=== PATIENT | female | born 2000 | race American Indian/Alaskan Native ===

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

== ENCOUNTER 2021-09-21 18:46 | Emergency (ER) | payer SELFPAY ==
[2021-09-21 19:17] VITALS: BP 134/85; PULSE 73
[2021-09-21] MEDS ORDERED: Iopamidol 612 MG/ML 100 ML Bottle IVPUSH ONE (20:10)
[2021-09-21] MEDS ORDERED: Ondansetron 4 MG/2 ML SDV IVPUSH ONE (20:22)
[2021-09-21] MEDS ORDERED: fentaNYL 100 MCG/2 ML SDV IVPUSH ONE (20:22)
[2021-09-24 12:49] LABS: C.TRACHOMATIS BY TMA Negative (Negative); N.GONORRHOEAE BY TMA Negative (Negative)
== END 2021-09-21 21:55 | disposition home or self-care (01) ==
LOC: DL.ED 18:46
DX: R10.31 Right lower quadrant pain (principal); E66.9 Obesity, unspecified; Z68.41 Body mass index [BMI] 40.0-44.9, adult; Z79.899 Other long term (current) drug therapy
CPT/HCPCS: 36415; 74177; 80053; 81001; 81025; 82150; 83605; 83690; 85025; 87491; 87591; 96374; 96375; 99284; J2405; J3010; Q9967

== ENCOUNTER 2022-03-21 11:43 | Emergency (ER) | payer OTHER ==
[2022-03-21 13:14] VITALS: BP 141/90; PULSE 93
[2022-03-21 13:49] LABS: CORONAVIRUS COVID-19 NAA NEGATIVE (NEGATIVE); RESPIRATORY SYNCYTIAL VIR NAA NEGATIVE (NEGATIVE)
[2022-03-21 15:12] LABS: ANION GAP 16.3 mEq/L (7-13)
[2022-03-21] MEDS ORDERED: Iopamidol 612 MG/ML 100 ML Bottle IVPUSH ONE (15:18)
[2022-03-21] MEDS ORDERED: Ondansetron 4 MG/2 ML SDV IVPUSH ONE (15:34)
[2022-03-21] MEDS ORDERED: Ketorolac 30 MG/ML SDV IVPUSH ONE (16:21)
== END 2022-03-21 16:32 | disposition home or self-care (01) ==
LOC: DL.ED 11:43
DX: K52.9 Noninfective gastroenteritis and colitis, unspecified (principal); F17.210 Nicotine dependence, cigarettes, uncomplicated; E66.9 Obesity, unspecified; Z68.41 Body mass index [BMI] 40.0-44.9, adult; Z20.822 Contact with and (suspected) exposure to COVID-19
CPT/HCPCS: 0241U; 36415; 74177; 80053; 81003; 81025; 82150; 83690; 84145; 85025; 96374; 96375; 99284; J1885; J2405; Q9967

== ENCOUNTER 2024-02-16 00:52 | Inpatient (IN) | payer OTHER ==
[~2024-02-16 00:52] MED LIST: Acetaminophen 325 MG Tab PO PRN; Carboprost Tromethamine 250 MCG/1 ML Amp IM PRN; Misoprostol 25 MCG (1/4 of 100 MCG) Tab PO PRN; Naloxone 2 MG/2 ML Syringe IVPUSH PRN; Ondansetron 4 MG/2 ML SDV IVPUSH PRN; Sodium Chloride 0.9% 10 ML Syringe FLUSH PRN; Tranexamic Acid 1,000 MG in Sodium Chloride 0.9% 100 ML IV PRN; fentaNYL 100 MCG/2 ML SDV IVPUSH PRN
[2024-02-16 01:33] LABS: HEMATOCRIT 39.1 % (37.0-47.0); HEMOGLOBIN 13.1 g/dL (12.0-16.0); MEAN CORPUSCULAR HEMOGLOBIN 30.5 pg (27.0-34.0); MEAN CORPUSCULAR HGB CONC 33.5 g/dL (33.0-35.0); MEAN CORPUSCULAR VOLUME 90.9 fL (80-100); RED BLOOD CELL COUNT 4.3 10^6/uL (4.2-5.4); WHITE BLOOD CELL COUNT,WBC 11.5 10^3/uL (5.0-10.0)
[2024-02-16] MEDS: Misoprostol 50 MCG (1/2 of 100 MCG) Tab PO SCH (01:52)
[2024-02-16] MEDS: Lactated Ringers 1,000 ML IV ONE (06:14)
[2024-02-16] MEDS ORDERED: fentaNYL 100 MCG/2 ML SDV ONE (06:32)
[2024-02-16] MEDS ORDERED: Bupivacaine 0.25% 10 ML SDV ONE (06:32)
[2024-02-16] MEDS ORDERED: Ropivacaine 100 ML EPIDUR ONE (06:35)
[2024-02-16] MEDS ORDERED: Bupivacaine 0.25% 10 ML SDV NERVRT ONE (06:35)
[2024-02-16] MEDS ORDERED: Ondansetron 4 MG/2 ML SDV IV ONE (06:35)
[2024-02-16] MEDS ORDERED: fentaNYL 100 MCG/2 ML SDV EPIDUR ONE (06:35)
[2024-02-16] MEDS ORDERED: Ketorolac 30 MG/ML SDV IVPUSH ONE (06:35)
[2024-02-16] MEDS ORDERED: Phenylephrine HCl In 0.9% NaCl 1 MG/10 ML Syringe IVPUSH PRN (06:56)
[2024-02-16] MEDS ORDERED: ePHEDrine 50 MG/ML SDV IVPUSH PRN (06:56)
[2024-02-16] MEDS ORDERED: Ropivacaine 200 MG in Premix Bag 1 BAG EPIDUR SCH (07:00)
[2024-02-16] MEDS: Lactated Ringers 1,000 ML IV SCH (07:49)
[2024-02-16] MEDS: Oxytocin/Normal Saline 30 UNIT/500 ML BAG IV SCH (07:55)
[2024-02-16] MEDS: Misoprostol 100 MCG Tab RECTAL PRN (16:38)
[2024-02-16] MEDS: Methylergonovine 0.2 MG/1 ML Amp IM PRN (16:39)
[2024-02-16] MEDS ORDERED: Sodium Chloride 0.9% 10 ML Syringe FLUSH PRN ×2 (17:40→20:17)
[2024-02-16] MEDS ORDERED: Simethicone 80 MG Tab.Chew PO PRN ×2 (17:40→20:17)
[2024-02-16] MEDS ORDERED: Acetaminophen 325 MG Tab PO PRN ×2 (17:40→20:17)
[2024-02-16] MEDS ORDERED: Misoprostol 100 MCG Tab RECTAL PRN ×2 (17:40→20:17)
[2024-02-16] MEDS ORDERED: Benzocaine/Menthol 20%-0.5% Spray 78 GM Cannister TOP PRN (17:40)
[2024-02-16] MEDS ORDERED: Carboprost Tromethamine 250 MCG/1 ML Amp IM PRN ×2 (17:40→20:17)
[2024-02-16] MEDS ORDERED: Witch Hazel Medicated Pads 100/Jar TOP PRN (17:40)
[2024-02-16] MEDS ORDERED: Oxytocin 10 Units/1 ML SDV IM PRN ×2 (17:40→20:17)
[2024-02-16] MEDS ORDERED: Tranexamic Acid 1,000 MG in Sodium Chloride 0.9% 100 ML IV PRN ×2 (17:40→20:17)
[2024-02-16] MEDS ORDERED: Docusate Sodium 100 MG Cap PO PRN (17:40)
[2024-02-16] MEDS ORDERED: Ibuprofen 800 MG Tab PO SCH (17:45)
[2024-02-16] MEDS: Lidocaine 1% 30 ML SDV INJECT ONE (18:17)
[2024-02-16] MEDS: Witch Hazel Medicated Pads 100/Jar TOP PRN (20:48)
[2024-02-16] MEDS: Benzocaine/Menthol 20%-0.5% Spray 78 GM Cannister TOP PRN (20:48)
[2024-02-16] MEDS: Docusate Sodium 100 MG Cap PO PRN (20:48)
[2024-02-16] MEDS: Ibuprofen 800 MG Tab PO SCH (20:49)
[2024-02-17] MEDS: Ferrous Sulfate 325 MG Tab PO SCH (05:17)
[2024-02-17 06:39] LABS: HEMATOCRIT 32.4 % (37.0-47.0); HEMOGLOBIN 10.9 g/dL (12.0-16.0); MEAN CORPUSCULAR HEMOGLOBIN 30.8 pg (27.0-34.0); MEAN CORPUSCULAR HGB CONC 33.6 g/dL (33.0-35.0); MEAN CORPUSCULAR VOLUME 91.5 fL (80-100); RED BLOOD CELL COUNT 3.54 10^6/uL (4.2-5.4); WHITE BLOOD CELL COUNT,WBC 14.3 10^3/uL (5.0-10.0)
[2024-02-17] MEDS ORDERED: Ferrous Sulfate 325 MG Tab PO SCH (08:00)
[2024-02-17] MEDS ORDERED: Prenatal Multivitamin with Calcium/Folic Acid/Iron Tab PO SCH (09:00)
[2024-02-17] MEDS: Prenatal Multivitamin with Calcium/Folic Acid/Iron Tab PO SCH (10:57)
[2024-02-18 08:42] VITALS: BP 132/83; PULSE 77
== END 2024-02-18 14:02 | disposition home or self-care (01) | DRG 806 ==
LOC: DL.OB 00:52 → OBSVTOIN 16:24
PROVIDERS: ADMIT Family Medicine; ATTEND Family Medicine
PROC: 10D07Z6 Extraction of Products of Conception, Vacuum, Via Natural or Artificial Opening (ICD-10-PCS; principal; 2024-02-16)
PROC: 0KQM0ZZ Repair Perineum Muscle, Open Approach (ICD-10-PCS; 2024-02-16)
PROC: 10907ZC Drainage of Amniotic Fluid, Therapeutic from Products of Conception, Via Natural or Artificial Opening (ICD-10-PCS; 2024-02-16)
PROC: 3E033VJ Introduction of Other Hormone into Peripheral Vein, Percutaneous Approach (ICD-10-PCS; 2024-02-16)
PROC: 3E0S3BZ Introduction of Anesthetic Agent into Epidural Space, Percutaneous Approach (ICD-10-PCS; 2024-02-16)
PROC: 00HU33Z Insertion of Infusion Device into Spinal Canal, Percutaneous Approach (ICD-10-PCS; 2024-02-16)
DX: O48.0 Post-term pregnancy (principal); O72.1 Other immediate postpartum hemorrhage; Z37.0 Single live birth; O70.1 Second degree perineal laceration during delivery; O99.214 Obesity complicating childbirth; O99.344 Other mental disorders complicating childbirth; O99.02 Anemia complicating childbirth; K90.0 Celiac disease; O99.62 Diseases of the digestive system complicating childbirth; O77.0 Labor and delivery complicated by meconium in amniotic fluid; O63.1 Prolonged second stage (of labor); Z3A.40 40 weeks gestation of pregnancy
CPT/HCPCS: 01967; 36415; 51701; 51702; 59409; 85027; A9270-GY; J0665; J1885; J2210; J2405; J2590; J2795; J3010; J7120